=== PATIENT | male | born 1975 | race Caucasian/White ===

== ENCOUNTER 2017-09-06 15:47 | Emergency (ER) | payer MEDICAID ==
[2017-09-06] MEDS ORDERED: INSULIN HUMAN REGULAR 100 U/ML SOL SUBCUT PRN (16:23)
[2017-09-06] MEDS ORDERED: INSULIN HUMAN REGULAR 100 U/ML SOL ONE (16:29)
[2017-09-06 17:16] VITALS: TEMP 98.9; O2SAT 99
[2017-09-06 17:18] VITALS: BP 155/97; PULSE 112; RESP 16
== END 2017-09-06 17:30 | disposition home or self-care (01) | DRG 639 ==
LOC: EDBD 15:47 → ED 15:47
DX: E11.65 Type 2 diabetes mellitus with hyperglycemia (principal); Z79.4 Long term (current) use of insulin
CPT/HCPCS: 82962; 96372; 99283; J1815